=== PATIENT | female | born 1995 | race Hispanic/Latino ===

== ENCOUNTER 2023-03-11 12:50 | Inpatient (IN) | payer MEDICAID, OTHER, SELFPAY ==
[2023-03-11 13:35] VITALS: BMI 45.7
[2023-03-11] MEDS ORDERED: Carboprost 250 MCG/ML AMP IM PRN (13:43)
[2023-03-11] MEDS ORDERED: Misoprostol 200 MCG TAB PR PRN (13:43)
[2023-03-11] MEDS ORDERED: Acetaminophen 500 MG TAB PO PRN (13:43)
[2023-03-11] MEDS ORDERED: hydrALAZINE 20 MG/ML VIAL SLOW IVP PRN (13:43)
[2023-03-11] MEDS ORDERED: Ondansetron PF 4 MG/2 ML Vial IVP PRN (13:43)
[2023-03-11] MEDS ORDERED: Zolpidem Tartrate 5 MG TAB PO PRN (13:43)
[2023-03-11] MEDS ORDERED: fentaNYL 50 mcg/mL 1 mL Vial SLOW IVP PRN (13:43)
[2023-03-11] MEDS ORDERED: Lidocaine 1% (PF) 30 ML VIAL SC PRN (13:43)
[2023-03-11] MEDS ORDERED: Methylergonovine 0.2 MG/ML VIAL IM PRN (13:43)
[2023-03-11] MEDS ORDERED: Promethazine HCl 25 MG/ML VIAL IM PRN (13:43)
[2023-03-11] MEDS ORDERED: Diphenoxylate HCl/Atropine Tablet PO PRN (13:43)
[2023-03-11] MEDS ORDERED: NS w/ Oxytocin 30 units 500 ML IV SCH (13:45)
[2023-03-11] MEDS ORDERED: Lactated Ringer's 1,000 ML IV SCH (13:45)
[2023-03-11] MEDS ORDERED: Ibuprofen 800 MG TAB PO PRN (13:46)
[2023-03-11] MEDS ORDERED: HYDROcodone/Acetaminophen 5/325 mg Tablet PO PRN (13:46)
[2023-03-11] MEDS ORDERED: Betamet Acet/Betamet Na Ph 30 MG/5 ML VIAL ONE (13:53)
[2023-03-11] MEDS: Betamet Acet/Betamet Na Ph 30 MG/5 ML VIAL IM SCH (14:07)
[2023-03-11 15:15] LABS: Hematocrit 39.4 % (34.9-44.5); Hemoglobin 13.4 g/dL (12.0-15.5); Mean Corpuscular Hemoglobin 31.5 pg (27.0-33.0); Mean Corpuscular Volume 92.5 fl (81.6-98.3); Mean Platelet Volume 11.8 fl (7.4-10.4); Platelet Count 258 10x3/uL (150-450); RBC Distribution Width 12.7 % (11.5-14.5); Red Blood Cell (RBC) Count 4.26 10x6/uL (3.90-5.03)
[2023-03-11 15:35] LABS: ALT (SGPT) 9 U/L (8-55); AST (SGOT) 14 U/L (5-34); Albumin 3.7 g/dL (3.5-5.0); Alkaline Phosphatase 120 U/L (40-110); Anion Gap 14 mmol/L (10-20); BUN (Urea Nitrogen) 8 mg/dL (7.0-18.7); Bilirubin, Total 0.4 mg/dL (0.2-1.2); Calc. Creatinine Clearance 254 mL/min (70-130); Calcium 9.6 mg/dL (7.8-10.44); Carbon Dioxide 19 mmol/L (22-29); Chloride 108 mmol/L (98-107); Estimated GFR 125; Globulin 3.2 g/dL (2.4-3.5); Glucose 66 mg/dL (70-105); Protein, Total 6.9 g/dL (6.0-8.3); Sodium 137 mmol/L (136-145)
[2023-03-11 15:53] LABS: Hep B Surf Ag - L&D Non-Reactive S/CO (NonReactive); Syphilis Antibody Nonreactive (Nonreactive); Syphilis Antibody Index 0.05 S/CO (<1.00 Non-Reactive)
[2023-03-11] MEDS ORDERED: Penicillin G Potassium 5 MILL.UNITS in Sodium Chloride 0.9% 100 ML IVPB SCH (19:00)
[2023-03-11] MEDS: Misoprostol 100 MCG TAB VAG SCH ×2 (19:15→23:15)
[2023-03-11] MEDS ORDERED: Calcium Carbonate 500 MG ChewTAB PO PRN (20:36)
[2023-03-11] MEDS: Penicillin G 2.5 MILL.units 2.5 MILL.UNITS in Premix Bag 1 BAG IVPB SCH (23:15)
[2023-03-12] MEDS: Betamet Acet/Betamet Na Ph 30 MG/5 ML VIAL IM SCH (03:00)
[2023-03-12] MEDS: Penicillin G 2.5 MILL.units 2.5 MILL.UNITS in Premix Bag 1 BAG IVPB SCH ×5 (03:19→23:14)
[2023-03-12] MEDS: Misoprostol 100 MCG TAB VAG SCH ×2 (03:19→08:01)
[2023-03-12] MEDS ORDERED: NS w/ Oxytocin 30 units 500 ML IV SCH (05:00)
[2023-03-12] MEDS ORDERED: fentaNYL/Ropivacaine Epidural 100 ML ONE (19:41)
[2023-03-13] MEDS: Penicillin G 2.5 MILL.units 2.5 MILL.UNITS in Premix Bag 1 BAG IVPB SCH ×2 (02:29→06:21)
[2023-03-13] MEDS ORDERED: fentaNYL/Ropivacaine Epidural 100 ML ONE (08:09)
[2023-03-13] MEDS ORDERED: hydrALAZINE 20 MG/ML VIAL SLOW IVP PRN (11:49)
[2023-03-13] MEDS ORDERED: Bisacodyl 10 MG SUPP PR PRN (11:49)
[2023-03-13] MEDS ORDERED: Promethazine HCl 25 MG/ML VIAL IM PRN (11:49)
[2023-03-13] MEDS ORDERED: Benzocaine-Menthol 82.5 ML CAN TOP PRN (11:49)
[2023-03-13] MEDS ORDERED: HYDROcodone/Acetaminophen 5/325 mg Tablet PO PRN ×2 (11:49)
[2023-03-13] MEDS ORDERED: Ondansetron PF 4 MG/2 ML Vial IVP PRN (11:49)
[2023-03-13] MEDS ORDERED: Lanolin Ointment 7 GM TUBE TOP PRN (11:49)
[2023-03-13] MEDS ORDERED: Preparation H Ointment 28 GM TUBE PR PRN (11:49)
[2023-03-13] MEDS ORDERED: diphenhydrAMINE 25 MG CAP PO PRN (11:49)
[2023-03-13] MEDS ORDERED: Milk Of Magnesia 30 ML UDCUP PO PRN (11:49)
[2023-03-13] MEDS ORDERED: Boostrix 0.5 ML (Tdap) VIAL (>/=7 yrs of age) IM ONE (11:49)
[2023-03-13] MEDS: Ibuprofen 800 MG TAB PO SCH ×2 (14:06→21:12)
[2023-03-13] MEDS: Ferrous Sulfate 325 MG TAB PO SCH (17:20)
[2023-03-13] MEDS: Docusate 100 MG CAP PO SCH (21:12)
[2023-03-14] MEDS: Ibuprofen 800 MG TAB PO SCH ×2 (05:04→13:33)
[2023-03-14] MEDS: Ferrous Sulfate 325 MG TAB PO SCH ×2 (07:17→17:48)
[2023-03-14 07:45] VITALS: BP 126/62; TEMP 98.1
[2023-03-14] MEDS ORDERED: Prenatal Vitamin 1 TAB PO SCH (09:00)
[2023-03-14] MEDS: Docusate 100 MG CAP PO SCH (09:54)
[2023-03-14] MEDS ORDERED: Bupivacaine 0.25% HCL 30 ML VIAL ONE (19:54)
== END 2023-03-14 18:30 | disposition home or self-care (01) | DRG 807 ==
LOC: CSHLD 12:50 → CSHPP 03-13 12:30
PROVIDERS: ADMIT Student in an Organized Health Care Education/Training Program; ATTEND Student in an Organized Health Care Education/Training Program
PROC: 10907ZC Drainage of Amniotic Fluid, Therapeutic from Products of Conception, Via Natural or Artificial Opening (ICD-10-PCS; 2023-03-12)
PROC: 10E0XZZ Delivery of Products of Conception, External Approach (ICD-10-PCS; principal; 2023-03-13)
PROC: 0HQ9XZZ Repair Perineum Skin, External Approach (ICD-10-PCS; 2023-03-13)
DX: O41.03X0 Oligohydramnios, third trimester, not applicable or unspecified (principal); Z37.0 Single live birth; Z3A.36 36 weeks gestation of pregnancy; Z79.899 Other long term (current) drug therapy; J45.909 Unspecified asthma, uncomplicated; O99.52 Diseases of the respiratory system complicating childbirth; O70.0 First degree perineal laceration during delivery; Z18.89 Other specified retained foreign body fragments
CPT/HCPCS: 36415; 51702; 72100; 72131; 80053; 85027; 86780; 86850; 86900; 86901; 87340; J2540; J2590; J3490; J7120; S0020

== ENCOUNTER 2024-08-02 16:25 | Emergency (ER) | payer MEDICAID, SELFPAY ==
[2024-08-02] MEDS ORDERED: predniSONE 20 MG TAB ONE (16:42)
[2024-08-02] MEDS ORDERED: Acetaminophen 325 MG TAB ONE (16:42)
[2024-08-02] MEDS ORDERED: Oseltamivir 75 MG CAP PO SCH (17:45)
== END 2024-08-02 17:58 | disposition home or self-care (01) ==
LOC: CSHERS 16:25
DX: J11.1 Influenza due to unidentified influenza virus with other respiratory manifestations (principal); J98.01 Acute bronchospasm
CPT/HCPCS: 71045; 87081; 87428; 87430; 99285; J7512